=== PATIENT | male | born 1960 | race Caucasian/White ===

== ENCOUNTER 2022-05-14 10:57 | Outpatient (CLI) | payer BC, SELFPAY ==
[2022-05-14 17:40] LABS: Chloride* 105 mmol/L (96-114); Potassium* 4.6 mmol/L (3.6-5.1); Sodium* 138 mmol/L (135-149)
[2022-05-14 17:43] LABS: Blood Urea Nitrogen* 20 mg/dL (7-30); Carbon Dioxide* 25 mmol/L (20-32); Cholesterol* 180 mg/dL (90-199); Creatinine* 0.9 mg/dL (0.5-1.5); Estimated Glomerular Filt Rate 98 ml/min
[2022-05-14 17:44] LABS: Calcium* 9.7 mg/dL (8.4-10.6); Glucose* 179 mg/dL (60-115); HDL Cholesterol* 46 mg/dL (>=40); LDL Cholesterol Calculated 112 mg/dL (<100); Triglycerides* 109 mg/dL (40-149)
[2022-05-14 18:14] LABS: PSA Screen* 1.04 ng/mL (0.10-4.00)
== END 2022-05-14 10:58 | disposition home or self-care (01) ==
PROVIDERS: PCP Family Medicine; Visit Provider Family Medicine
DX: E13.9 Other specified diabetes mellitus without complications (principal); E78.5 Hyperlipidemia, unspecified; Z12.5 Encounter for screening for malignant neoplasm of prostate
CPT/HCPCS: 80048; 80061; 84153

== ENCOUNTER 2022-10-30 12:34 | Outpatient (CLI) | payer BC, SELFPAY ==
--- NOTE | 2022-10-30 13:00 | MR_ITS ---
Patient: KENNETH LINDSEY Facility:?[facility] Patient ID:?[id number] Site Patient ID:?[id number]. Site :?[id number] Study:?MRI-Spine Lumbar W/O-10/30/2022 2:24:36 PM Ordering Physician:?Manuel Hernandez Final Report: Indication: Lumbar radiculopathy, left-sided. Technique: Noncontrast sagittal and axial T1, T2, and sagittal STIR sequences are provided. Comparison: MRI lumbar spine dated 10/12/2021. Findings: Five lumbar type vertebral bodies, the last fully formed intervertebral disc denoted L5-S1 for the purposes of this exam. Similar straightening of the lumbar lordosis. Posterior aspects of the vertebral bodies are aligned. There is multilevel degenerative endplate signal intensity including Modic 2 changes in the opposing endplates at L2-3 and L4-L5. The conus medullaris terminates normally at the L1-L2 level. The visualized spinal cord is normal in signal intensity and cauda equina nerve roots appear within normal limits. The paraspinal soft tissues are unremarkable. T12-L1: Mildly degenerated disc. No significant spinal canal or neural foraminal stenosis. L1-L2: Mildly degenerated disc. Symmetric disc bulge without significant spinal canal or neural foraminal stenosis. L2-L3: Moderately degenerative disc. As before, eccentric disc bulge questionably contacting the traversing left L3 nerve root and resulting in moderate left neural foraminal stenosis. No significant spinal canal or right neural foraminal stenosis. L3-L4: Moderately degenerative disc. Similar mild spinal canal and bilateral neural foraminal stenosis. L4-L5: Moderately degenerative disc. Slight increase in size of the left subarticular disc extrusion which now measures approximately 15 millimeters and demonstrates caudal subligamentous extension. As before, jm impingement of the left L5 nerve root. Similar mild right and moderate left neural foraminal narrowing. L5-S1: Moderately degenerative disc. Unchanged right paracentral disc protrusion contacting the right S1 nerve root. Similar moderate bilateral neural foraminal narrowing. No significant spinal canal stenosis. Impression: Slight interval increase in size of a left L4-L5 subarticular disc extrusion with caudal subligamentous migration and impingement of the left L5 nerve root. Similar right paracentral disc protrusion at L5-S1 abutting right S1 nerve root and eccentric disc bulge at L2-L3 questionably contacting the traversing left L3 nerve root. Similar moderate neural foraminal stenoses at L4-L5 and L5-S1. Dictated by Bobby Mcpherson MD @ 10/31/2022 11:38:19 AM Signed by:?Bobby Mcpherson MD @10/31/2022 11:38:19 AM (Electronic Signature)
== END 2022-10-30 12:35 | disposition home or self-care (01) ==
LOC: MRI 12:34
PROVIDERS: PCP Family Medicine; Visit Provider Family Medicine
DX: M54.16 Radiculopathy, lumbar region (principal); M51.06 Intervertebral disc disorders with myelopathy, lumbar region; M51.27 Other intervertebral disc displacement, lumbosacral region
CPT/HCPCS: 72148

== ENCOUNTER 2023-08-26 09:20 | Outpatient (CLI) | payer BC, SELFPAY | END 2023-08-26 09:21 | disposition home or self-care (01) | LOC: LKVREF 09:21 | PROVIDERS: PCP Family Medicine; Visit Provider Family Medicine | DX: E78.2 Mixed hyperlipidemia (principal) | CPT/HCPCS: 80061 ==

== ENCOUNTER 2024-04-28 08:32 | Outpatient (CLI) | payer BC, SELFPAY | END 2024-04-28 08:33 | disposition home or self-care (01) | PROVIDERS: PCP Family Medicine; Visit Provider Family Medicine | DX: E13.9 Other specified diabetes mellitus without complications (principal); E78.2 Mixed hyperlipidemia; Z12.5 Encounter for screening for malignant neoplasm of prostate | CPT/HCPCS: 80048; 80061; G0103 ==

== ENCOUNTER 2024-06-30 09:03 | Outpatient (CLI) | payer BC, SELFPAY | END 2024-06-30 09:04 | disposition home or self-care (01) | PROVIDERS: PCP Family Medicine; Visit Provider Family Medicine | DX: M25.50 Pain in unspecified joint (principal); Z13.29 Encounter for screening for other suspected endocrine disorder | CPT/HCPCS: 84439; 84443; 86140 ==